=== PATIENT | female | born 1970 ===

== ENCOUNTER 2023-02-12 15:01 | Outpatient (CLI) | payer BC | END 2023-02-12 15:02 | disposition home or self-care (01) | LOC: ULT 15:01 | PROVIDERS: ATTEND Family Medicine | DX: R22.1 Localized swelling, mass and lump, neck (principal); E04.2 Nontoxic multinodular goiter; E01.0 Iodine-deficiency related diffuse (endemic) goiter; R93.89 Abnormal findings on diagnostic imaging of other specified body structures | CPT/HCPCS: 76536 ==